=== PATIENT | female | born 1980 | race Caucasian/White ===

== ENCOUNTER 2018-06-10 18:33 | Emergency (ER) | payer MEDICAID ==
[2018-06-10] MEDS: ACETAMINOPHEN 500 MG TAB PO (20:32)
== END 2018-06-10 22:57 | disposition home or self-care (01) ==
LOC: FTE 18:33
DX: M54.2 Cervicalgia (principal); M54.9 Dorsalgia, unspecified
CPT/HCPCS: 71045; 71100; 72040; 72072; 72100; 81025; 99284-25